=== PATIENT | female | born 1945 | race Caucasian/White ===

== ENCOUNTER 2025-02-09 09:29 | Outpatient (AMB) | payer BC, SELFPAY ==
--- NOTE | 2025-02-09 09:53 | A.OFFPC_ITS ---
Vital Signs 02/09/25 10:12 Height 5 ft 6.5 in Weight 129 lb 2 oz BMI 20.5 BP 130/80 Blood Pressure Location Lt brachial Position Sitting Respiration 16 Pulse 65 Pulse Source Pulse Oximeter Temp 98.2 F Temp Source Oral Pulse Oximetry (%) 96 Oxygen Delivery Method Room Air Intake Visit Reasons: reestablish care Cash Applications Representative Required: No Accompanied by: Self / Same As Patient Allergies codeine Allergy (Intermediate, Verified 02/09/25 10:18) Stomach Upset nitrofurantoin (From Macrodantin) Allergy (Intermediate, Verified 02/09/25 10:18) Hives Sulfa (Sulfonamide Antibiotics) Allergy (Intermediate, Verified 02/09/25 10:18) Hives Medication List - Last Reconciled 02/09/25 by Misty Brantley MD albuterol sulfate 90 mcg/actuation (Ventolin HFA) 2 puffs inhalation Q6H PRN amlodipine 5 mg PO DAILY amlodipine-benazepril 5-20 mg 1 cap PO DAILY betamethasone, augmented 0.05 % appl topical BID ibcsmwohzu-xwmtlzw-ayoldxzs 50-325-40 mg 1 cap PO TID cetirizine (Zyrtec) 10 mg PO DAILY PRN cholecalciferol (vitamin D3) 50 mcg PO DAILY citalopram 40 mg PO DAILY diazepam 5 mg PO TID PRN lactobacillus combination no.4 (Probiotic) 3,000 mmu cells PO DAILY latanoprost 0.005% 1 drp ophthalmic (eye) BEDTIME levothyroxine 25 mcg PO DAILY magnesium L-lactate ER 168 mg PO DAILY methenamine hippurate 1 g PO BID omega-3 fatty acids 1,000 mg PO DAILY Tobacco use date assessed: 02/09/25 Fall risk assessment: No Falls in past year Last assessed Fall Risk: 02/09/25 Dental Screening Dental Screen Date: 02/09/25 Did you have a dental visit in the last 12 months?: Yes Did you have a dental problem in the last 6 months where you did not have access to dental care?: No Was dental information given to patient?: Patient has dentist HPI HPI Comments History of Present Illness Details History of Present Illness The patient is a 79-year-old female presenting for reestablishment of care. Essential Hypertension: Longstanding condition managed with amlodipine and amlodipine/benazepril Migraine: Managed with Fiorinal, requiring specific pharmacy due to availability- usually gets it at [facility]. Anxiety: Managed with diazepam and citalopram, previous regimen from psychiatrist. Hypothyroidism: Managed with levothyroxine. Medical History: - Hypertension - Migraine disorder - Anxiety - Hypothyroidism Review of Systems - Neurological: Reports migraines - Cardiovascular: Denies chest pain - Musculoskeletal: Reports past hematoma left lower extremity managed by chiropractor after fall - Psychiatric: Reports anxiety Physical Exam General: NAD Chest: CTABL. Card: normal s1, s2, soft murmur across precordium Abd: SNTND, +BS Extremities: 1+edema LLE, small hematoma noted , trace RLE Neuro: AOX3 Assessment and Plan 1. Essential Hypertension - Continue amlodipine and amlodipine/christie azepril, transfer prescriptions to [facility]. 2. Migraine - continue fiorinal 3. Anxiety - continue diazepam and citalopram 4. Hypothyroidism - Lab evaluations for thyroid function - continue levothyroxine, adjust dose as needed 5. Leg swelling- notes LLE worsened afte r fall, has been doing ultrasound treatment and icing prn, advised to elevate and continue to monitor Patient Instructions - Take BP meds as prescribed - Get lab tests for thyroid function. - Follow up for any issues or side effec ts with medications. [facility] Medical History (Updated 02/09/25 @ 15:04 by Misty Brantley MD) Anxiety Migraine Hypertension Hypothyroidism Social History Housing: Apartment Patient Tobacco Use Status: Never used Tobacco e-Cigarette/Vaping Use: Never Used service: No Current occupational status: retired Questionnaire AUDIT C Alcohol Use Questionnaire (AUDIT-C) 1. How often do you have a drink containing alcohol?: Never 3. How often do you have six or more drinks on one occasion?: Never Total Score: 0 Physical exam (Primary Care) Vital Signs: Last Vital Signs Temp 98.2 F 02/09/25 10:12 Pulse 65 02/09/25 10:12 Resp 16 02/09/25 10:12 BP 130/80 02/09/25 10:12 Pulse Ox 96 02/09/25 10:12 Oxygen Delivery Method Room Air 02/09/25 10:12 BMI result Body Mass Index 20.5 Tobacco/Smoking Status: Tobacco use Status Tobacco use date assessed 02/09/25 02/09/25 10:14 Patient Tobacco Use Status Never used Tobacco 02/09/25 10:29 e-Cigarette/Vaping Use Never Used 02/09/25 10:29 Coding Level of Care Code Est Pt Level 4 (83176) Complex EM visit Add On G2211 Diagnoses Acquired hypothyroidism E03.9 Hypothyroidism type: acquired Primary hypertension I10 Hypertension type: primary hypertension Migraine without status migrainosus, not intractable, unspecified migraine type G43.909 Migraine type: unspecified Status migrainosus presence: without status migrainosus Intractability: not intractable Anxiety F41.9 Assessment & Plan Assessment & Plan (1) Hypothyroidism: Code(s): E03.9 - Hypothyroidism, unspecified Category: Medical Qualifiers: Hypothyroidism type: acquired Qualified Code(s): E03.9 - Hypothyroidism, unspecified (2) Hypertension: Code(s): I10 - Essential (primary) hypertension Category: Medical Qualifiers: Hypertension type: primary hypertension Qualified Code(s): I10 - Essential (primary) hypertension (3) Migraine: Code(s): G43.909 - Migraine, unspecified, not intractable, without status migrainosus Category: Medical Qualifiers: Migraine type: unspecified Status migrainosus presence: without status migrainosus Intractability: not intractable Qualified Code(s): G43.909 - Migraine, unspecified, not intractable, without status migrainosus (4) Anxiety: Code(s): F41.9 - Anxiety disorder, unspecified Category: Medical Plan - Continue amlodipine and amlodipine/benazepril - Conduct thyroid function tests and adjust levothyroxine if needed. - Continue citalopram and lorazepam - Continue fiorinal for migraines - Follow up in 3-4 months Orders: Orders Comprehensive Met. Panel Today E03.9 - Hypothyroidism, unspecified, I10 - Essential (primary) hypertension TSH reflex Free T4 Today E03.9 - Hypothyroidism, unspecified Medications: New vbhrxogsef-jnxmzhx-blhltboa 50-325-40 mg green capsule specifically 1 cap PO TID 270 caps 3RF NS amlodipine-benazepril 5-20 mg 1 cap PO DAILY 90 caps 3RF citalopram 40 mg PO DAILY 90 tabs 3RF amlodipine 5 mg PO DAILY 90 tabs 3RF
[2025-02-09 10:12] VITALS: BP 130/80; PULSE 65; RESP 16; TEMP 36.8; O2SAT 96; BMI 20.5
== END 2025-02-09 11:52 | disposition home or self-care (01) ==
LOC: HO.HMCHD 09:29
PROVIDERS: PCP Internal Medicine; Visit Provider Internal Medicine
DX: E03.9 Hypothyroidism, unspecified (principal); I10 Essential (primary) hypertension; G43.909 Migraine, unspecified, not intractable, without status migrainosus; F41.9 Anxiety disorder, unspecified

== ENCOUNTER 2025-02-09 12:13 | Outpatient (REF) | payer BC, SELFPAY ==
[2025-02-09 13:43] LABS: Alanine Aminotransferase 11 U/L (0-31); Albumin Level 4.2 g/dL (3.5-5.0); Alkaline Phosphatase 113 U/L (39-117); Anion Gap 11 (12-20); Aspartate Amino Transferase 20 U/L (5-31); Blood Urea Nitrogen 7 mg/dL (9-16); Calcium 8.7 mg/dL (8.4-10.2); Carbon Dioxide 26 mmol/L (22-29); Chloride 100 mmol/L (96-108); Estimated Glomerular Filt Rate > 60; Potassium 5.1 mmol/L (3.3-5.1); Sodium 132 mmol/L (135-145); Total Protein 6.5 g/dL (6.5-8.0)
== END 2025-02-09 12:14 | disposition home or self-care (01) ==
LOC: HO.10HDL 12:13
PROVIDERS: Visit Provider Internal Medicine
DX: I10 Essential (primary) hypertension (principal); E03.9 Hypothyroidism, unspecified
CPT/HCPCS: 36415; 80053; 84443

== ENCOUNTER 2025-02-13 09:09 | Outpatient (REF) | payer MEDICARE, SELFPAY ==
[2025-02-13 13:54] LABS: Anion Gap 9 (12-20); Blood Urea Nitrogen 13 mg/dL (9-16); Calcium 8.4 mg/dL (8.4-10.2); Carbon Dioxide 29 mmol/L (22-29); Chloride 102 mmol/L (96-108); Estimated Glomerular Filt Rate > 60; Potassium 4.6 mmol/L (3.3-5.1); Sodium 135 mmol/L (135-145)
== END 2025-02-13 09:10 | disposition home or self-care (01) ==
LOC: HO.HKASLDS 09:09
PROVIDERS: PCP Internal Medicine; Visit Provider Internal Medicine
DX: E87.1 Hypo-osmolality and hyponatremia (principal)
CPT/HCPCS: 36415; 80048